=== PATIENT | female | born 1990 | race Caucasian/White ===

== ENCOUNTER → 2024-09-03 | Outpatient (CLI) | payer BC ==
--- NOTE | 2024-09-03 09:39 | NM ---
EXAMINATION TYPE: NM hepatobiliary w EF DATE OF EXAM: 09/03/2024 9:11 AM COMPARISON: Ultrasound most recent 08/12/2024 CLINICAL INDICATION:Female, 33 years old with history of R10.11 RUQ pain; TECHNIQUE: The patient was given 5 mCi of Technetium 99m-Mebrofenin as a radiotracer and multiple sc intigraphic images were obtained of the abdomen. Gallbladder function was also assessed after the adm inistration of ensure drink and additional scintigraphic images were obtained of the abdomen. A regio n of interest was drawn over the gallbladder and a timing activity curve was generated. The gallbladd er ejection fraction was calculated. FINDINGS: Normal uptake of radiotracer was identified within the liver with excretion into the hepatic and comm on biliary ducts within 6 min. There was normal progressive washout of the liver over the course of t he study. Radiotracer uptake within the gallbladder at 14 minutes as well as small bowel activity was identified at 8 minutes. Maximum calculated gallbladder ejection fraction is: 79% at 30 minutes (Normal gallbladder ejection fraction is > 35%) IMPRESSION: 1. Normal hepatobiliary scan. 2. Normal ejection fraction. [facility], , 09/03/2024 9:36 AM
== END | disposition home or self-care (01) ==
LOC: RADNMMAIN 06:50
PROVIDERS: ATTEND Family Medicine
DX: R10.11 Right upper quadrant pain (principal)
CPT/HCPCS: 78226; A9537